=== PATIENT | female | born 1975 | race Caucasian/White ===

== ENCOUNTER → 2019-07-16 | Outpatient (CLI) | payer OTHER, SELFPAY | PROVIDERS: Family Provider Family Medicine; Visit Provider Radiology Radiation Oncology | DX: C50.412 Malignant neoplasm of upper-outer quadrant of left female breast (principal); Z17.0 Estrogen receptor positive status [ER+]; F41.8 Other specified anxiety disorders; J45.990 Exercise induced bronchospasm | CPT/HCPCS: 99205 ==

== ENCOUNTER → 2019-07-27 | Outpatient (CLI) | payer OTHER, SELFPAY | PROVIDERS: Family Provider Family Medicine; Visit Provider Specialist | DX: C50.412 Malignant neoplasm of upper-outer quadrant of left female breast (principal); Z17.0 Estrogen receptor positive status [ER+] | CPT/HCPCS: 99213 ==

== ENCOUNTER 2019-08-26 08:08 | Outpatient (RCR) | payer OTHER, SELFPAY | END 2019-08-28 23:59 | disposition home or self-care (01) | LOC: SPT 08:08 | PROVIDERS: Family Provider Family Medicine; PCP Family Medicine; Referring Provider Radiology Radiation Oncology; Visit Provider Radiology Radiation Oncology | DX: C50.412 Malignant neoplasm of upper-outer quadrant of left female breast (principal) | CPT/HCPCS: 97140; 97161 ==

== ENCOUNTER 2019-08-28 05:47 | Outpatient (RCR) | payer OTHER, SELFPAY ==
--- NOTE | 2019-08-04 | CT_ITS ---
Radation Therapy Planning CT images; total exam DLP: 705.70 mGy-cm MTDD
--- NOTE | 2019-08-14 13:03 | ONCRAD TMN_ITS ---
Radiation Oncology Weekly Treatment Management Patient: Gayatri Serna MR#: [id number] : 1975> Age: 44> Sex: Female Dictated by: Dr. Tyrone Tong Date of Service: 08/12/2019 Referring Physician(s) : Dr. Abhinav Waggoner Primary Diagnosis: Z17.0 - Estrogen receptor positive status [ER+], Diagnosed 07/15/2019 (Active) C50.412 - Malignant neoplasm of upper-outer quadrant of left female breast, Diagnosed 07/15/2019 (Active) Stage IA, T1b, pN0, M0, G1, HER2 Neg, ER Pos, [place] P Radiotherapy to date: Course: LT Breast Prone, Treatment Site: LT [id number], Ref. ID: LT [id number], Energy: 15X/6X, Dose/Fx (cGy): 266, #Fx: , Dose Correction (cGy): 0, Total Dose (cGy): 266, Start Date: 08/12/2019, Elapsed Days: 0 Current Complaints/Interval History: Constitutional Complains of mild fatigue. Denies lack of appetite, fever and night sweats. Integumentary No redness to left breast or axilla Breasts Denies pain. Respiratory Mild cough which is non-productive. Complains of dyspnea which is related to asthma. Denies wheezing. Current Medications: Adderall, augmentin, buPROPion HCl ER (SR), cetirizine HCl, flonase, hYDROcodone-Acetaminophen, lORazepam. Allergies: Adheasives. Vital Signs: Performed on 08/12/2019 9:32 AM BMI - 30.485 kg/m2 (high), Height - 64.00 in, Weight - 177.6 lbs, Temperature - 98.4 f, Pulse - 93, Respiration - 18, O2 Sat - 98 %, Pain - 0 and BP - 122/ 76 mm(hg). Physical Exam: Appears stable, no skin erythema or desquamation. Performance Status: 0 - Fully active, able to carry on all predisease activities without restrictions. (ECOG) Lab: None pending in Radiation Oncology. Imaging: No new diagnostic imaging was performed since the last weekly treatment visit. All radiation therapy related imaging (including but not limited to kV generated images) was reviewed. Appropriate changes, if any, were made to assure accurate target localization. Impression/Plan: Tolerating treatment well with expected side effects. Continue treatment as planned. Apply aquaphor to treatment area. CPT: 07872 Signed by: Dr. Tyrone Tong>08/14/2019 1:02:40 PM <<Signature on File>>
--- NOTE | 2019-08-19 16:40 | ONCRAD TMN_ITS ---
Radiation Oncology Weekly Treatment Management Patient: Gayatri Serna MR#: [id number] : 1975> Age: 44> Sex: Female Dictated by: Dr. Tyrone Tong Date of Service: 08/19/2019 Referring Physician(s) : Dr. Abhinav Waggoner Primary Diagnosis: Z17.0 - Estrogen receptor positive status [ER+], Diagnosed 07/15/2019 (Active) C50.412 - Malignant neoplasm of upper-outer quadrant of left female breast, Diagnosed 07/15/2019 (Active) Stage IA, T1b, pN0, M0, G1, HER2 Neg, ER Pos, [place] P Radiotherapy to date: Course: LT Breast Prone, Treatment Site: LT [id number], Ref. ID: LT [id number], Energy: 15X/6X, Dose/Fx (cGy): 266, #Fx: , Dose Correction (cGy): 0, Total Dose (cGy): 1,596, Start Date: 08/12/2019, Elapsed Days: 7 Current Complaints/Interval History: Constitutional Complains of mild fatigue. Denies lack of appetite, fever and night sweats. Integumentary Has slight redness to the left breast but no irritation Breasts Denies pain but has left axilla pain that radiates down to the wrist on the anterior side. Current Medications: Adderall, buPROPion HCl ER (SR), cetirizine HCl, flonase, hYDROcodone-Acetaminophen, lORazepam. Allergies: Adheasives. Vital Signs: Performed on 08/19/2019 9:31 AM BMI - 30.622 kg/m2 (high), Height - 64.00 in, Weight - 178.4 lbs, Temperature - 98.3 f, Pulse - 92, Respiration - 18, O2 Sat - 97 %, Pain - 6 and BP - 135/ 76 mm(hg). Physical Exam: Appears stable, mild skin erythema w/o desquamation. Performance Status: 0 - Fully active, able to carry on all predisease activities without restrictions. (ECOG) Lab: None pending in Radiation Oncology. Imaging: No new diagnostic imaging was performed since the last weekly treatment visit. All radiation therapy related imaging (including but not limited to MV generated images) was reviewed. Appropriate changes, if any, were made to assure accurate target localization. Impression/Plan: Tolerating treatment well with expected side effects. Continue treatment as planned. Continue aquaphor. Referral to physical therapy for her left axillar pain/symptoms from surgery. CPT: 66036 Signed by: Dr. Tyrone Tong>08/19/2019 4:40:07 PM <<Signature on File>>
--- NOTE | 2019-08-26 11:27 | ONCRAD TMN_ITS ---
Radiation Oncology Weekly Treatment Management Patient: Gayatri Serna MR#: [id number] : 1975 Age: 44 Sex: Female Dictated by: Dr. Tyrone Tong Date of Service: 08/26/2019 Referring Physician(s): Dr. Abhinav Waggoner Primary Diagnosis: Z17.0 - Estrogen receptor positive status [ER+], Diagnosed 07/15/2019 (Active) C50.412 - Malignant neoplasm of upper-outer quadrant of left female breast, Diagnosed 07/15/2019 (Active) Stage IA, T1b, pN0, M0, G1, HER2 Neg, ER Pos, [place] P Radiotherapy to date: Course: LT Breast Prone, Treatment Site: LT [id number], Ref. ID: LT [id number], Energy: 15X/6X, Dose/Fx (cGy): 266, #Fx: , Dose Correction (cGy): 0, Total Dose (cGy): 2,926, Start Date: 08/12/2019, Elapsed Days: 14 Current Complaints/Interval History: Constitutional Complains of fatigue on and off. Denies lack of appetite, fever, night sweats and change in weight. Integumentary Has redness to the left breast. Has pain/swelling of the nipple Breasts Denies pain. Respiratory Complains of dyspnea occasionally. Denies cough and wheezing. Current Medications: Adderall, advil, buPROPion HCl ER (SR), cetirizine HCl, flonase, hYDROcodone-Acetaminophen, lORazepam. Allergies: Adheasives. Vital Signs: Performed on 08/26/2019 9:24 AM BMI - 30.554 kg/m2 (high), Height - 64.00 in, Weight - 178.0 lbs, Temperature - 98.1 f, Pulse - 86, Respiration - 18, O2 Sat - 99 %, Pain - 0 and BP - 112/ 75 mm(hg). Physical Exam: Appears stable, no skin erythema or desquamation. Performance Status: 0 - Fully active, able to carry on all predisease activities without restrictions. (ECOG) Lab: None pending in Radiation Oncology. Imaging: No new diagnostic imaging was performed since the last weekly treatment visit. All radiation therapy related imaging (including but not limited to MV generated images) was reviewed. Appropriate changes, if any, were made to assure accurate target localization. Impression/Plan: Tolerating treatment well with expected side effects. Continue treatment as planned. Apply aquaphor and 1% hydrocortisone cream to affected skin CPT: 06387 Signed by: Dr. Tyrone Tong>08/26/2019 11:26:22 AM <<Signature on File>>
== END 2019-08-28 23:59 | disposition home or self-care (01) ==
LOC: ONCMED 05:47
PROVIDERS: Family Provider Family Medicine; Visit Provider Radiology Radiation Oncology
DX: Z51.0 Encounter for antineoplastic radiation therapy (principal); C50.412 Malignant neoplasm of upper-outer quadrant of left female breast; L58.0 Acute radiodermatitis; Y84.2 Radiological procedure and radiotherapy as the cause of abnormal reaction of the patient, or of later complication, without mention of misadventure at the time of the procedure; Z17.0 Estrogen receptor positive status [ER+]
CPT/HCPCS: 77263; 77280; 77290; 77295; 77300; 77334; 77336; 77412; 77417

== ENCOUNTER 2019-08-29 06:00 | Outpatient (RCR) | payer OTHER, SELFPAY | END 2019-09-26 23:59 | disposition home or self-care (01) | LOC: SPT 06:00 | PROVIDERS: Family Provider Family Medicine; PCP Family Medicine; Referring Provider Radiology Radiation Oncology; Visit Provider Radiology Radiation Oncology | DX: C50.412 Malignant neoplasm of upper-outer quadrant of left female breast (principal); Z17.0 Estrogen receptor positive status [ER+] | CPT/HCPCS: 97140 ==

== ENCOUNTER 2019-09-23 05:40 | Outpatient (RCR) | payer OTHER, SELFPAY ==
--- NOTE | 2019-09-02 13:11 | ONCRAD TMN_ITS ---
Radiation Oncology Weekly Treatment Management Patient: Gayatri Serna MR#: [id number] : 1975> Age: 44> Sex: Female Dictated by: Dr. Tyrone Tong Date of Service: 09/02/2019 Referring Physician(s) : Dr. Abhinav Waggoner Primary Diagnosis: Z17.0 - Estrogen receptor positive status [ER+], Diagnosed 07/15/2019 (Active) C50.412 - Malignant neoplasm of upper-outer quadrant of left female breast, Diagnosed 07/15/2019 (Active) Stage IA, T1b, pN0, M0, G1, HER2 Neg, ER Pos, [place] P Radiotherapy to date: Course: LT Breast Prone, Treatment Site: LT [id number], Ref. ID: LT [id number], Energy: 15X/6X, Dose/Fx (cGy): 266, #Fx: , Dose Correction (cGy): 0, Total Dose (cGy): 4,256, Start Date: 08/12/2019, Elapsed Days: 21 Current Complaints/Interval History: Integumentary Complains of pain and desquamation of skin around areola. Denies rash and urticaria. Breasts Complains of left breast soreness. Respiratory Denies cough, dyspnea and wheezing. Current Medications: Adderall, advil, buPROPion HCl ER (SR), cetirizine HCl, flonase, hYDROcodone-Acetaminophen, lORazepam. Allergies: Adheasives. Vital Signs: Performed on 09/02/2019 9:18 AM Weight - 178.2 lbs, Temperature - 97.7 f, Pulse - 26, Respiration - 16, O2 Sat - 99 %, Pain - 0 and BP - 112/ 66 mm(hg). Physical Exam: Appears stable, skin erythema and moisture desquamation in areola area. Performance Status: 0 - Fully active, able to carry on all predisease activities without restrictions. (ECOG) Lab: None pending in Radiation Oncology. Imaging: No new diagnostic imaging was performed since the last weekly treatment visit. All radiation therapy related imaging (including but not limited to MV generated images) was reviewed. Appropriate changes, if any, were made to assure accurate target localization. Impression/Plan: Tolerating treatment well with expected side effects. Continue treatment as planned. Rx: silvadene cream applied to moisture desquamation; Continue aquaphor for erythema. CPT: 62605 Signed by: Dr. Tyrone Tong>09/02/2019 1:09:30 PM <<Signature on File>>
--- NOTE | 2019-09-08 11:02 | ONCRAD TMN_ITS ---
Radiation Oncology Weekly Treatment Management Patient: Gayatri Serna MR#: [id number] : 1975> Age: 44> Sex: Female Dictated by: Dr. Tyrone Tong Date of Service: 09/08/2019 Referring Physician(s) : Dr. Abhinav Waggoner Primary Diagnosis: Z17.0 - Estrogen receptor positive status [ER+], Diagnosed 07/15/2019 (Active) C50.412 - Malignant neoplasm of upper-outer quadrant of left female breast, Diagnosed 07/15/2019 (Active) Stage IA, T1b, pN0, M0, G1, HER2 Neg, ER Pos, CT P Radiotherapy to date: Course: LT Breast Prone, Treatment Site: LT Breast 10Gy, Ref. ID: [id number], Energy: 15X/6X, Dose/Fx (cGy): 200, #Fx: 4 / 5, Dose Correction (cGy): 0, Total Dose (cGy): 800, Start Date: 09/03/2019, Elapsed Days: 5 Treatment Site: LT [id number], Ref. ID: LT [id number], Energy: 15X/6X, Dose/Fx (cGy): 266, #Fx: 16 / 16, Dose Correction (cGy): 0, Total Dose (cGy): 4,256, Start Date: 08/12/2019, End Date: 09/02/2019, Elapsed Days: 21 Current Complaints/Interval History: Constitutional Complains of moderate fatigue. Denies lack of appetite, fever and night sweats. Integumentary Has desquamation under the left breast Breasts Complains of pain in the left breast under the left breast. Respiratory Denies cough, dyspnea and wheezing. Current Medications: Adderall, advil, buPROPion HCl ER (SR), cetirizine HCl, flonase, hYDROcodone-Acetaminophen, lORazepam, silvadene. Allergies: Adheasives. Vital Signs: Performed on 09/08/2019 9:11 AM BMI - 30.622 kg/m2 (high), Height - 64.00 in, Weight - 178.4 lbs, Temperature - 97.3 f, Pulse - 96, Respiration - 20, O2 Sat - 100 %, Pain - 4 and BP - 123/ 81 mm(hg). Physical Exam: Appears stable, skin erythema and rash with a spot of moisture desquamation in inframammary fold Performance Status: 0 - Fully active, able to carry on all predisease activities without restrictions. (ECOG) Lab: None pending in Radiation Oncology. Imaging: No new diagnostic imaging was performed since the last weekly treatment visit. All radiation therapy related imaging (including but not limited to MV generated images) was reviewed. Appropriate changes, if any, were made to assure accurate target localization. Impression/Plan: Tolerating treatment well with expected side effects. Continue treatment as planned. Apply aquphor and hydrocortisone cream to the rash and erythema, silvadene to moisture desquamation CPT: 44826 Signed by: Dr. Tyrone Tong>09/08/2019 11:01:25 AM <<Signature on File>>
[2019-09-23 10:06] LABS: Basophils # 0.1 10^3/uL (0.0-0.1); Basophils % 1.4 %; Eosinophils # 0.2 10^3/uL (0.0-0.8); Eosinophils % 4.8 %; Hematocrit 42.6 % (37.0-47.0); Hemoglobin 14.2 g/dL (11.5-15.3); Lymphocytes # 1.6 10^3/uL (0.8-4.8); Lymphocytes % 38.6 %; Mean Corpuscular HGB Conc 33.3 g/dL (30.0-36.0); Mean Corpuscular Hemoglobin 30.8 pg (28.0-34.0); Mean Corpuscular Volume 92.4 fL (81-99); Mean Platelet Volume 10.3 fL (7.4-10.4); Monocytes # 0.6 10^3/uL (0.2-0.9); Monocytes % 13.8 %; Neutrophils # 1.7 10^3/uL (1.8-7.7); Neutrophils % 41.4 %; Nucleated Red Blood Cells % 0 %; Platelet Count 269 10^3/cmm (130-400); Red Blood Count 4.61 10^6/uL (4.1-5.3); Red Cell Distribution Width 11.4 % (12.1-15.1); White Blood Count 4.2 10^3/uL (4.0-10.0)
[2019-09-23 10:29] LABS: Alanine Aminotransferase 25 U/L (0-33); Albumin Level 4.3 g/dL (3.5-5.2); Alkaline Phosphatase 100 IU/L (35-105); Anion Gap 15.1 (5-19); Aspartate Amino Transferase 28 U/L (0-32); Blood Urea Nitrogen 18 mg/dL (6-20); Calcium 10.6 mg/dL (8.5-10.5); Carbon Dioxide 29 mmol/L (22-29); Chloride 99 mmol/L (98-107); Follicle Stimulating Hormone 91.9 mIU/mL; Globulin 3.6 g/dL (1.3-4.6); Glomerular Filtration Rate 67.4 mL/min (90-130); Glucose 95 mg/dL (65-115); Potassium 4.1 mmol/L (3.5-5.1); Sodium 139 mmol/L (136-145); Thyroid Stimulating Hormone 2.15 uIU/mL (0.27-4.20); Total Bilirubin 0.6 mg/dL (0.15-1.2); Total Protein 7.9 g/dL (6.6-8.7)
[2019-09-23 11:00] LABS: Free T4 Free Thyroxine 1.28 ng/dL (0.82-1.77)
--- NOTE | 2019-09-23 19:38 | ONC FU_ITS ---
Dr. Mayer Patient Follow-Up Note Patient: Gayatri Serna V Unit #: [id number]: 1975 Dicatated By: John Mayer M.D.Date of Visit:Sep 23, 2019 Onc Med Follow-up/Prog Note Chief Complaint: Breast cancer. History of Present Illness: This is a 44 year-old woman with grade 1 infiltrating ductal carcinoma of the left breast, stage IA (pT1b, pN0, M0), ER/AR positive and HER-2/alin negative. She has been in good general health. Her screening mammogram on 04/06/2019 was BI-RADS 0, incomplete. Findings included a spiculated soft tissue density or focus of architectural distortion measuring 10.8 mm in the posterior and lateral left breast, new from the prior exams in 2015 and 2013. Her additional mammogram views on 04/16/2019 showed persistent architectural distortion in the upper outer quadrant left breast measuring 8.9 mm. Left breast ultrasound showed a focus at the 2 o'clock position measuring 8.7 x 10.3 x 13.3 mm, but it did not appear masslike. The findings, though, were 4C, moderate suspicious. Ultrasound directed biopsy of the mass on 05/07/2019 showed nuclear grade 2 infiltrating ductal carcinoma. She underwent left breast lumpectomy on 06/18/2019. The initial pathology showed fibrocystic changes with a microscopic focus of atypical ductal epithelium. Additional excision at the lateral edge of the biopsy cavity showed grade 1 infiltrating ductal carcinoma measuring 1.0 x 0.4 cm. Fibrocystic changes were again noted. The new margins were noted to be free of tumor and atypia. The breast prognostic profile showed ER positive at 96% and AR positive at 71%. The tumor was negative for overexpression of HER-2/alin, 0+ by IHC and amplification ratio by FISH of 1.3 with 2.8 HER-2 copies/cell. The Ki-67 was favorable at 8%. She then underwent left axillary sentinel lymph node biopsy on 07/09/2019. The surgical specimen included 1 sentinel lymph node and one additional axillary lymph node, both of which showed benign pathology. I had seen her initially on 07/15/2019. In the setting of early stage, low risk disease she was recommended to undergo radiation followed by adjuvant hormonal therapy with tamoxifen. She began radiation to the left breast on 08/12/2019. She completed treatment on 07/09/2020, total dose 5256 cGy. Her other medical illnesses include allergic rhinitis and exercise-induced asthma. She also has a history of attention deficit disorder and anxiety/depression. She underwent hysterectomy without oophorectomy in 2017. She is a non-smoker. Her family history is significant for her father having had prostate cancer and for her maternal grandfather having had breast cancer. She is seen for a follow-up visit. She indicates that she developed significant problems during her radiation. In addition to having a fairly pronounced skin reaction in the breast, she also developed significant pain and swelling in her left arm. It included development of lymphatic cords in the arm, some of which popped. She says the swelling is beginning to go down now. She also complains that her face broke out during the treatment, but that has resolved. She is having some fatigue and she has gained weight. Her ECOG score is 1. She has not had fever. She has started having some hot flashes at night. She is sometimes short of breath. She does not complain of cough, and she has not been having chest pain. She has had some nausea and some acid reflux. Bowel and bladder function have been okay. She has no significant joint or bone pain. She occasionally has headache and she occasionally has dizziness. She has no numbness/paresthesia or other focal neurologic symptoms. Medications: Adderall 1 Tablet (of 30 mg) Tablet Oral daily, Advil 3 Tablet (of 200 mg) Oral t.i.d. PRN, buPROPion HCl ER (SR) 1 Tablet (of 150 mg) Tablet SR 12 HR Oral b.i.d., Cetirizine HCl 1 Tablet (of 10 mg) Oral daily, LORazepam 0.5 Tablet (of 0.5 mg) Tablet Oral daily PRN, Nasacort Allergy 24HR 1 Puff(s) Aerosol Nasal PRN Allergies: Adheasives Review of Systems: Constitutional - Her energy is pretty good generally. She has some limitation in activity. Her appetite is good and her weight is up close to 10 lbs. No fever or chills. She has had pretty severe hot flashes and sweating at night. ECOG score is 1, ENMT - No sinus congestion/drainage. No mouth sores. No sore throat or difficulty swallowing, Hematologic/Lymphatic - She has had some bruising, Respiratory - She sometimes gets a little winded. No cough. No pleuritic pain or hemoptysis, Cardiovascular - No angina pain. No palpitations, Gastrointestinal - She had some nausea during her radiation treatments. It has gotten better. No vomiting. She has some heartburn and acid reflux depending on what she eats. No diarrhea or constipation. No blood in the stool or black stools, Genitourinary (F) - No dysuria or hematuria. No urinary frequency. No urgency or incontinence, Musculoskeletal - She has been having pain and swelling in her left arm. She is going to physical therapy, Integumentary - She had a pretty severe skin reaction in the breast, but it is getting better. During radiation she also had an acne breakout on her face, Neurologic - She has occasional headaches. She had some dizziness yesterday after exercising. No numbness/paresthesias or other focal neurologic symptoms, Psychiatric - She has anxiety or depression, but it is managed adequately with medication. She does not sleep well at night, which is normal for her. Vital Signs: Performed on Sep 23, 2019 08:33 Height - 64.00 in Weight - 180.2 lbs (HIGH) BSA - 1.87 sq.m BMI - 30.93 (HIGH) Temperature - 97.5 F (LOW) Pulse - 91 /min Respiration - 18 /min BP - 140/78 mm(hg) O2 Sat - 99 % Pain - 0 Physical Examination: Constitutional - She looks good generally, Eyes - Sclerae nonicteric. Conjunctivae clear, ENMT - No lesions noted in the oral cavity, Hematologic/Lymphatic - No cervical or clavicular adenopathy, Respiratory - Lungs are clear with good air movement bilaterally, Cardiovascular - Heart rhythm is regular. There is no murmur, gallop, or rub noted, Breasts - There is residual erythema over the entire left breast and there is mild tenderness in the breast and in the left axilla. There is no palpable mass or adenopathy, Abdomen - Soft and non-tender. Liver and spleen are not enlarged. There is no abdominal mass or ascites noted and there is no inguinal adenopathy, Extremities - There is mild to moderately severe swelling of the left arm and there is some slight skin discoloration. There is no lower extremity edema, Neurologic - No focal neurologic deficits noted. Impression: 1. Patient with grade 1 infiltrating ductal carcinoma of the left breast, stage IA (pT1b, pN0, M0), ER/AR positive and HER-2/alin negative. Her Ki-67 index was favorable at 8%. 2. She underwent left breast lumpectomy on 06/18/2019 and she underwent left axillary sentinel lymph node biopsy on 07/09/2019. Her other medical illnesses include: 3. Allergic rhinitis. 4. Exercise induced asthma. 5. ADHD. 6. Anxiety/depression. I had seen her initially on 07/15/2019. In the setting of early stage, low risk disease she was recommended to undergo radiation followed by adjuvant hormonal therapy with tamoxifen. She began radiation to the left breast on 08/12/2019. She completed treatment on 07/09/2020, total dose 5256 cGy. She developed multiple problems during the radiation, the most significant being pain and swelling in the left arm. The appearance is consistent with lymphedema, and there have been associated lymphatic cords. She also has significant fatigue, and she has started having hot flashes. This is mostly unexpected with her surgery having been limited to lumpectomy and axillary sentinel node biopsy and with radiation limited to the breast. Plan: I had previously recommended adjuvant hormonal therapy with tamoxifen, but with the problems she has been experiencing I am going to delay starting her treatment. I will check baseline laboratory studies today to include CBC, comprehensive metabolic profile and TSH level, along with FSH, LH, and estradiol levels. I will see her again in 1 month. Signed By: John Mayer M.D. <<Signature on File>>
== END 2019-09-26 23:59 | disposition home or self-care (01) ==
LOC: ONCMED 05:40
PROVIDERS: Family Provider Family Medicine; PCP Family Medicine; Visit Provider Internal Medicine Medical Oncology
DX: Z51.0 Encounter for antineoplastic radiation therapy (principal); C50.412 Malignant neoplasm of upper-outer quadrant of left female breast; Z17.0 Estrogen receptor positive status [ER+]; L58.0 Acute radiodermatitis; Y84.2 Radiological procedure and radiotherapy as the cause of abnormal reaction of the patient, or of later complication, without mention of misadventure at the time of the procedure; R23.4 Changes in skin texture; N64.59 Other signs and symptoms in breast; J30.9 Allergic rhinitis, unspecified; J45.990 Exercise induced bronchospasm; F90.9 Attention-deficit hyperactivity disorder, unspecified type; F41.8 Other specified anxiety disorders
CPT/HCPCS: 36415; 77280; 77307; 77334; 77336; 77412; 77417; 80053; 82670; 83001; 83002; 84439; 84443; 85025; 99214

== ENCOUNTER 2019-09-27 06:00 | Outpatient (RCR) | payer OTHER, SELFPAY | END 2019-10-23 23:00 | disposition home or self-care (01) | LOC: SPT 06:00 | PROVIDERS: Family Provider Family Medicine; PCP Family Medicine; Referring Provider Radiology Radiation Oncology; Visit Provider Radiology Radiation Oncology | DX: C50.412 Malignant neoplasm of upper-outer quadrant of left female breast (principal) | CPT/HCPCS: 97140 ==

== ENCOUNTER 2019-10-26 06:30 | Outpatient (RCR) | payer OTHER, SELFPAY ==
--- NOTE | 2019-10-07 09:59 | ONCRAD EPV_ITS ---
Radiation Oncology Follow Up Note Patient: Gayatri MR#: [id number] : 1975> Age: 44> Sex: Female> Dictated by: Dr. Gorge Mcfarlane Date of Service: 10/07/2019 Referring Physician(s) : Dr. Abhinav Waggoner Diagnosis: Z17.0 - estrogen receptor positive status [er+], Diagnosed 07/15/2019 (active) and C50.412 - malignant neoplasm of upper-outer quadrant of left female breast, Diagnosed 07/15/2019 (active), stage ia, t1b, pn0, m0, g1, her2 neg, er pos, pr p. Current Complaints Patient seen 6 weeks after completing left breast RT. No complaints currently. Skin erythema has healed completely. Review of Systems: .Negative Vital Signs: Performed on 10/07/2019 9:52 AM Weight - 174.6 lbs, Temperature - 97.7 f, Pulse - 100, Respiration - 16, O2 Sat - 98 %, Pain - 0 and BP - 121/ 78 mm(hg). Physical Exam: Minimal hyperpigmentation in left breast, no desquamation. No residual palpable lesion or seroma in UOQ of left breast. Impression/Plan: Patient doing very well. To see Dr Mayer later this month to discuss any systemic therapy issues. Return in 6 months, at which time baseline mammogrsm will be obtained Signed by: 10/07/2019 9:57:39 AM <<Signature on File>> Time spent with patient: CPT Code:
--- NOTE | 2019-10-30 07:40 | ONC FU_ITS ---
Dr. Mayer Patient Follow-Up Note Patient: Gayatri Serna V Unit #: [id number]: 1975 Dicatated By: John Mayer M.D.Date of Visit:Oct 26, 2019 Onc Med Follow-up/Prog Note Chief Complaint: Breast cancer. History of Present Illness: This is a 44 year-old woman with grade 1 infiltrating ductal carcinoma of the left breast, stage IA (pT1b, pN0, M0), ER/IA positive and HER-2/alin negative. She has been in good general health. Her screening mammogram on 04/06/2019 was BI-RADS 0, incomplete. Findings included a spiculated soft tissue density or focus of architectural distortion measuring 10.8 mm in the posterior and lateral left breast, new from the prior exams in 2015 and 2013. Her additional mammogram views on 04/16/2019 showed persistent architectural distortion in the upper outer quadrant left breast measuring 8.9 mm. Left breast ultrasound showed a focus at the 2 o'clock position measuring 8.7 x 10.3 x 13.3 mm, but it did not appear masslike. The findings, though, were 4C, moderate suspicious. Ultrasound directed biopsy of the mass on 05/07/2019 showed nuclear grade 2 infiltrating ductal carcinoma. She underwent left breast lumpectomy on 06/18/2019. The initial pathology showed fibrocystic changes with a microscopic focus of atypical ductal epithelium. Additional excision at the lateral edge of the biopsy cavity showed grade 1 infiltrating ductal carcinoma measuring 1.0 x 0.4 cm. Fibrocystic changes were again noted. The new margins were noted to be free of tumor and atypia. The breast prognostic profile showed ER positive at 96% and IA positive at 71%. The tumor was negative for overexpression of HER-2/alin, 0+ by IHC and amplification ratio by FISH of 1.3 with 2.8 HER-2 copies/cell. The Ki-67 was favorable at 8%. She then underwent left axillary sentinel lymph node biopsy on 07/09/2019. The surgical specimen included 1 sentinel lymph node and one additional axillary lymph node, both of which showed benign pathology. I had seen her initially on 07/15/2019. In the setting of early stage, low risk disease she was recommended to undergo radiation followed by adjuvant hormonal therapy with tamoxifen. She began radiation to the left breast on 08/12/2019. She completed treatment on 07/09/2020, total dose 5256 cGy. Her other medical illnesses include allergic rhinitis and exercise-induced asthma. She also has a history of attention deficit disorder and anxiety/depression. She underwent hysterectomy without oophorectomy in 2017. She is a non-smoker. Her family history is significant for her father having had prostate cancer and for her maternal grandfather having had breast cancer. INTERIM HISTORY: I had seen her for a follow-up visit on 09/23/2019. At that point she was still having significant problems following her surgery and radiation, and I opted to defer starting her adjuvant hormonal therapy. She is today for a Telehealth visit. She is feeling much better now. She has improved energy, and she is pretty much back to normal activity now. ECOG score is 0. The left arm lymphedema has improved significantly. She still has a little swelling in her left hand, but she is managing that with a glove. She has some hot flashes, which come and go. They are not severe. Overall, she is doing much better. Medications: Adderall 1 Tablet (of 30 mg) Tablet Oral daily, Advil 3 Tablet (of 200 mg) Oral t.i.d. PRN, buPROPion HCl ER (SR) 1 Tablet (of 150 mg) Tablet SR 12 HR Oral b.i.d., Cetirizine HCl 1 Tablet (of 10 mg) Oral daily, LORazepam 0.5 Tablet (of 0.5 mg) Tablet Oral daily PRN, Nasacort Allergy 24HR 1 Puff(s) Aerosol Nasal PRN Allergies: Adheasives Review of Systems: Constitutional - Her energy level is much better. She is fully active. Her appetite is good. Her weight is down about 7 pounds. No fever or chills. Her hot flashes are still coming and going but they are overall better. She has occasional night sweats. ECOG score is 0, ENMT - She has seasonal allergies that are pretty well controlled with Zyrtec and Flonase. She has some sinus drainage. No mouth sores. No sore throat or difficulty swallowing, Hematologic/Lymphatic - No abnormal bruising or bleeding, Respiratory - No shortness of breath. No cough. No pleuritic pain or hemoptysis, Cardiovascular - No angina pain. No palpitations, Gastrointestinal - No nausea or vomiting. She has heartburn depending on what she eats. No diarrhea or constipation. No blood in the stool or black stools, Genitourinary (F) - No dysuria or hematuria. No urinary frequency. No urgency or incontinence, Musculoskeletal - No joint or bone pain, Integumentary - She has been having swelling in her left hand. The arm swelling has improved, Neurologic - She has had sinus headaches, improved with Flonase. She's had some lightheadedness when bending over. No numbness/paresthesias or other focal neurologic symptoms, Psychiatric - No anxiety or depression. She has occasional insomnia. Physical Examination: Constitutional - She looks good generally. She still has some mild swelling. Lab/Imaging: Test performed on Sep 23, 2019 09:50 Estradiol 5.0 pg/mL FSH 91.9 mIU/mL LH 50.80 mIU/mL Sodium 139 mmol/L T4, Free 1.28 ng/dL TSH 2.15 uIU/mL Potassium 4.1 mmol/L Chloride 99 mmol/L CO2 29 mmol/L Anion Gap 15.1 BUN 18 mg/dL Creatinine 0.9 mg/dL Cr Clearance (Est) 100.7900 mL/min eGFR 67.4 mL/min Glucose 95 mg/dL Calcium 10.6 mg/dL Protein, Total 7.9 g/dL Albumin 4.3 g/dL Globulin 3.6 g/dL Bilirubin, Total 0.6 mg/dL ALT (SGPT) 25 U/L AST (SGOT) 28 U/L Alkaline Phosphatase 100 IU/L WBC 4.2 10 3/uL RBC 4.61 10 6/uL HGB 14.2 g/dL HCT 42.6 % MCV 92.4 fL MCH 30.8 pg MCHC 33.3 g/dL RDW 11.4 % Platelet Count 269 10 3/cmm MPV 10.3 fL Neutrophils 1.7 10 3/uL Lymphocytes 1.6 10 3/uL Monocytes 0.6 10 3/uL Eosinophils 0.2 10 3/uL Basophils 0.1 10 3/uL Neutrophil % 41.4 % Lymphocyte % 38.6 % Monocyte % 13.8 % Eosinophil % 4.8 % Basophils % 1.4 % Impression: 1. Patient with grade 1 infiltrating ductal carcinoma of the left breast, stage IA (pT1b, pN0, M0), ER/IA positive and HER-2/alin negative. Her Ki-67 index was favorable at 8%. 2. She underwent left breast lumpectomy on 06/18/2019 and she underwent left axillary sentinel lymph node biopsy on 07/09/2019. Her other medical illnesses include: 3. Allergic rhinitis. 4. Exercise induced asthma. 5. ADHD. 6. Anxiety/depression. I had seen her initially on 07/15/2019. In the setting of early stage, low risk disease she was recommended to undergo radiation followed by adjuvant hormonal therapy with tamoxifen. She began radiation to the left breast on 08/12/2019. She completed treatment on 07/09/2020, total dose 5256 cGy. She developed multiple problems during the radiation, the most significant being pain and swelling in the left arm. The appearance was consistent with lymphedema, and it has now improved significantly with physical therapy. Overall, she appears now to be doing very well clinically. Plan: She will now begin adjuvant hormonal therapy with tamoxifen 20 mg daily. The recommended duration of treatment is 5 years. She is aware that it will likely increase her hot flashes and that it may cause other anti-estrogen effects, including vaginal dryness. She is also aware that it has a risk of thromboembolism. As she previously had a hysterectomy, she is not at risk of endometrial cancer. She will be scheduled for a followup visit in 3 months. Signed By: John Mayer M.D. <<Signature on File>>
== END 2019-10-27 23:59 | disposition home or self-care (01) ==
LOC: ONCMED 06:30
PROVIDERS: Family Provider Family Medicine; PCP Family Medicine; Visit Provider Internal Medicine Medical Oncology
DX: C50.412 Malignant neoplasm of upper-outer quadrant of left female breast (principal); Z17.0 Estrogen receptor positive status [ER+]; J45.990 Exercise induced bronchospasm; F98.8 Other specified behavioral and emotional disorders with onset usually occurring in childhood and adolescence; F41.8 Other specified anxiety disorders; Z79.899 Other long term (current) drug therapy; Z79.810 Long term (current) use of selective estrogen receptor modulators (SERMs); Z92.3 Personal history of irradiation; Z80.3 Family history of malignant neoplasm of breast; Z80.42 Family history of malignant neoplasm of prostate
CPT/HCPCS: 99214

== ENCOUNTER 2020-05-03 10:05 | Outpatient (CLI) | payer OTHER, SELFPAY ==
--- NOTE | 2020-05-03 10:09 | MM_ITS ---
WS: [id number] DIAGNOSTIC BILATERAL DIGITAL MAMMOGRAM WITH CAD HISTORY: POST RADIATION TX;HX OF BREAST CA COMPARISON: 06/18/2019, 04/16/2019, 04/06/2019 and 03/30/2016 TECHNIQUE: Bilateral craniocaudad, mediolateral oblique, and mediolateral views are submitted. Comput er aided detection utilized. Breast composition: The breasts are heterogeneously dense, which may obscure small masses. Postsurgic al lumpectomy site upper outer quadrant of the LEFT breast. There is overlying soft tissue thickening and distortion which is appropriate for the recent surgery and radiation treatment. Overall trabecul ar pattern is slightly increased within the breast with skin thickening which is also consistent with radiation treatment. MM/[id number] IMPRESSION: BI-RADS: 2-Benign FOLLOW UP: 1 Year Follow-up
== END 2020-05-03 10:06 | disposition home or self-care (01) ==
PROVIDERS: PCP Family Medicine
DX: Z85.3 Personal history of malignant neoplasm of breast (principal)
CPT/HCPCS: 77066

== ENCOUNTER 2020-06-21 10:10 | Outpatient (CLI) | payer OTHER, SELFPAY ==
--- NOTE | 2020-06-24 15:43 | ONC FU_ITS ---
Dr. Mayer Patient Follow-Up Note Patient: Gayatri Serna V Unit #: [id number]: 1975 Dicatated By: John Mayer M.D.Date of Visit:Jun 21, 2020 Onc Med Follow-up/Prog Note Chief Complaint: Breast cancer. History of Present Illness: This is a 45 year-old woman with grade 1 infiltrating ductal carcinoma of the left breast, stage IA (pT1b, pN0, M0), ER/NM positive and HER-2/alin negative. She had presented with an abnormal screening mammogram in 2018. Findings included a spiculated soft tissue density or focus of architectural distortion measuring 10.8 mm in the posterior and lateral left breast, new from the prior exams in 2015 and 2013. Her additional mammogram views on 04/16/2019 showed persistent architectural distortion in the upper outer quadrant left breast measuring 8.9 mm. Left breast ultrasound showed a focus at the 2 o'clock position measuring 8.7 x 10.3 x 13.3 mm, but it did not appear masslike. The findings, though, were 4C, moderate suspicious. Ultrasound directed biopsy of the mass on 05/07/2019 showed nuclear grade 2 infiltrating ductal carcinoma. She underwent left breast lumpectomy on 06/18/2019. The initial pathology showed fibrocystic changes with a microscopic focus of atypical ductal epithelium. Additional excision at the lateral edge of the biopsy cavity showed grade 1 infiltrating ductal carcinoma measuring 1.0 x 0.4 cm. Fibrocystic changes were again noted. The new margins were noted to be free of tumor and atypia. The breast prognostic profile showed ER positive at 96% and NM positive at 71%. The tumor was negative for overexpression of HER-2/alin, 0+ by IHC and amplification ratio by FISH of 1.3 with 2.8 HER-2 copies/cell. The Ki-67 was favorable at 8%. She then underwent left axillary sentinel lymph node biopsy on 07/09/2019. The surgical specimen included 1 sentinel lymph node and 1 additional axillary lymph node, both of which showed benign pathology. I had seen her initially on 07/15/2019. In the setting of early stage, low risk disease she was recommended to undergo radiation followed by adjuvant hormonal therapy. She began radiation to the left breast on 08/12/2019. She completed treatment on 09/09/2019, total dose 5256 cGy. At her follow-up visit on 09/23/2019 she was still having significant problems following her surgery and radiation, and I opted to defer starting her adjuvant hormonal therapy. At that time I had uncertainty about her menopausal status, as her history included a previous hysterectomy without oophorectomy. She had not been having any obvious menopausal symptoms, but her FSH, LH, and estradiol levels did appear to be postmenopausal. Ultimately she begin treatment on 10/26/2019, and I opted to use tamoxifen, as the duration of her menopause was unknown. Her other medical illnesses include allergic rhinitis and exercise-induced asthma. She also has a history of attention deficit disorder and anxiety/depression. She underwent hysterectomy without oophorectomy in 2017. She is a non-smoker. Her family history is significant for her father having had prostate cancer and for her maternal grandfather having had breast cancer. INTERIM HISTORY: At her follow-up visit on 10/26/2019 she began adjuvant hormonal therapy with tamoxifen 20 mg daily. She had stopped it within 3 weeks due to multiple side effects, the most significant being generalized swelling. She also had hot flashes, fatigue, and mood swings. She is seen now for a scheduled follow-up. She has generally felt better since stopping the tamoxifen. However, she has had some ongoing problems with lymphatic cording in her left breast/chest wall and in the left arm. She was having some swelling, that has improved. She has good energy now and she has normal activity. Her appetite is good. She has gained weight. She has not had fever. She does report having hot flashes all the time. She has some cough associated with sinus drainage. She does not complain of shortness of breath. She has some tightness in her chest associated with the cording. She has had mild nausea since she started taking Accutane. She has no other GI or complaints. She has felt a little achy at times, but she has no significant joint or bone pain. She has no focal neurologic symptoms. Medications: accutane 1 Tablet Oral daily, Acetaminophen (650 mg) Tablet Oral Take as Directed, Adderall 1 Tablet (of 30 mg) Tablet Oral daily, Advil 3 Tablet (of 200 mg) Oral t.i.d. PRN, Aspirin Adult (325 mg) Tablet Oral Take as Directed, buPROPion HCl ER (SR) 1 Tablet (of 150 mg) Tablet SR 12 HR Oral b.i.d., Cetirizine HCl 1 Tablet (of 10 mg) Oral daily, LORazepam 0.5 Tablet (of 0.5 mg) Tablet Oral daily PRN, Nasacort Allergy 24HR 1 Puff(s) Aerosol Nasal PRN Allergies: Adheasives Review of Systems: Constitutional - She has good energy and she has normal activity. Her appetite is good. She has gained weight. She has not had fever. She does have hot flashes all the time. ECOG score is 0, ENMT - She has sinus drainage. No mouth sores, but she says she is getting a fever blister. No sore throat or difficulty swallowing, Hematologic/Lymphatic - She has some bruising, Respiratory - No shortness of breath. She has cough with the sinus drainage. No pleuritic pain or hemoptysis, Cardiovascular - She has some tightness in the left lateral chest area associated with lymphatic cording. She has no angina pain. No palpitations, Gastrointestinal - No nausea or vomiting. No heartburn or acid reflux. No diarrhea or constipation. No blood in the stool or black stools, Genitourinary (F) - No dysuria or hematuria. No urinary frequency. No urgency or incontinence, Musculoskeletal - She has felt a little achy at times, Integumentary - No skin rash, Neurologic - No headache. She sometimes has dizziness. No numbness or tingling. No other focal neurologic symptoms, Psychiatric - She has some anxiety, but no depression. She has always had problems with insomnia. Vital Signs: Performed on Jun 21, 2020 12:35 Height - 64.00 in Weight - 183.0 lbs (HIGH) BSA - 1.88 sq.m BMI - 31.41 (HIGH) Temperature - 98.2 F (LOW) Pulse - 103 /min (HIGH) Respiration - 18 /min BP - 124/74 mm(hg) O2 Sat - 98 % Pain - 0 Physical Examination: Constitutional - She looks good generally, Eyes - Sclerae nonicteric. Conjunctivae clear, ENMT - No lesions noted in the oral cavity, Hematologic/Lymphatic - No cervical, clavicular, or axillary adenopathy, Respiratory - Lungs are clear with good air movement bilaterally, Cardiovascular - Heart rhythm is regular. There is no murmur, gallop, or rub noted, Breasts - There is mild induration in the left breast. There are no breast masses noted. There is no definite linear cord palpable in the subcutaneous tissue in the lateral left chest, just adjacent to the lower inferior breast margin. It is slightly tender. There is no axillary adenopathy noted. She currently does not show evidence of lymphedema, Abdomen - Soft. Liver and spleen are not enlarged. There is no abdominal mass or ascites noted and there is no inguinal adenopathy, Extremities - No lower extremity edema, Neurologic - No focal neurologic deficits noted. Impression: 1. Patient with grade 1 infiltrating ductal carcinoma of the left breast, stage IA (pT1b, pN0, M0), ER/NM positive and HER-2/alin negative. Her Ki-67 index was favorable at 8%. 2. She underwent left breast lumpectomy on 06/18/2019 and she underwent left axillary sentinel lymph node biopsy on 07/09/2019. In the setting of early stage, low risk disease she was recommended to undergo radiation followed by adjuvant hormonal therapy. 3. She completed radiation to the left breast on 09/09/2019, total dose 5256 cGy. 4. Her FSH, LH, and estradiol levels from August 2019 were in postmenopausal range. However, as the duration of her menopausal status was unknown, she was recommended to undergo adjuvant hormonal therapy with tamoxifen 20 mg daily, which she started on 10/26/2019. It was stopped after 3 weeks due to multiple side effects. 5. Her family history is positive for breast cancer and prostate cancer, which does put her at some risk for hereditary breast cancer. Her genetic screening apparently is in process. Her other medical illnesses include: 6. Allergic rhinitis. 7. Exercise induced asthma. 8. ADHD. 9. Anxiety/depression. Following her office visit in September 2019 she began adjuvant hormonal therapy with tamoxifen 20 mg daily. She had multiple side effects, and she stopped taking it within 3 weeks. She has since then been feeling better generally, though she still has hot flashes. She has had some ongoing problems with lymphatic cording in her left breast/chest wall and in her left arm. She also has had some lymphedema, but that now appears to be controlled. Plan: In the setting of very low risk disease and with significant side effects associated with adjuvant hormonal therapy, she will be followed on observation/expectant management for the breast cancer. I will see her again in 6 months. Signed By: John Mayer M.D. <<Signature on File>>
== END 2020-06-21 10:11 | disposition home or self-care (01) ==
LOC: ONCMED 10:12
PROVIDERS: PCP Family Medicine; Visit Provider Internal Medicine Medical Oncology
DX: C50.412 Malignant neoplasm of upper-outer quadrant of left female breast (principal); Z17.0 Estrogen receptor positive status [ER+]; J30.9 Allergic rhinitis, unspecified; J45.990 Exercise induced bronchospasm; F98.8 Other specified behavioral and emotional disorders with onset usually occurring in childhood and adolescence; F41.8 Other specified anxiety disorders; Z79.810 Long term (current) use of selective estrogen receptor modulators (SERMs); Z92.3 Personal history of irradiation; Z80.3 Family history of malignant neoplasm of breast
CPT/HCPCS: 99214

== ENCOUNTER 2021-05-11 14:03 | Outpatient (CLI) | payer OTHER, SELFPAY ==
--- NOTE | 2021-05-11 14:10 | MM_ITS ---
WS: [id number] DIAGNOSTIC BILATERAL DIGITAL MAMMOGRAM WITH CAD HISTORY: HX OF BREAST CA COMPARISON: 05/03/2020 and 04/06/2019 TECHNIQUE: Bilateral craniocaudad, mediolateral oblique, and mediolateral views are submitted. Comput er aided detection utilized. Breast composition: There are scattered areas of fibroglandular density. Focal area of architectural distortion from the prior lumpectomy in the upper outer quadrant of the LEFT breast. No suspicious mass or calcifications in the RIGHT breast. MM/[id number] IMPRESSION: BI-RADS: 2-Benign FOLLOW UP: 1 Year Follow-up
== END 2021-05-11 14:04 | disposition home or self-care (01) ==
LOC: RADSHAW 14:07
PROVIDERS: PCP Family Medicine; Visit Provider Internal Medicine Medical Oncology
DX: Z85.3 Personal history of malignant neoplasm of breast (principal)
CPT/HCPCS: 77066

== ENCOUNTER 2021-09-27 13:39 | Outpatient (CLI) | payer OTHER, SELFPAY ==
[2021-09-27 15:47] LABS: Basophils # 0.1 10^3/uL (0.0-0.1); Basophils % 1.1 %; Eosinophils # 0.2 10^3/uL (0.0-0.8); Eosinophils % 3.2 %; Hematocrit 44.8 % (37.0-47.0); Hemoglobin 15.1 g/dL (11.5-15.3); Lymphocytes # 2.6 10^3/uL (0.8-4.8); Lymphocytes % 35.9 %; Mean Corpuscular HGB Conc 33.7 g/dL (30.0-36.0); Mean Corpuscular Hemoglobin 32.2 pg (28.0-34.0); Mean Corpuscular Volume 95.5 fl (81-99); Mean Platelet Volume 10.3 fL (7.4-10.4); Monocytes # 0.7 10^3/uL (0.2-0.9); Monocytes % 9.9 %; Neutrophils # 3.53 10^3/uL (1.8-7.7); Neutrophils % 49.8 %; Nucleated Red Blood Cells % 0 %; Platelet Count 294 10^3/cmm (130-400); Red Blood Count 4.69 10^6/uL (4.1-5.3); Red Cell Distribution Width 11.6 % (12.1-15.1); White Blood Count 7.1 10^3/uL (4.0-10.0)
[2021-09-27 16:46] LABS: Alanine Aminotransferase 23 U/L (0-33); Albumin Level 4.8 g/dL (3.5-5.2); Alkaline Phosphatase 112 IU/L (35-105); Blood Urea Nitrogen 14 mg/dL (6-20); Calcium 9.5 mg/dL (8.5-10.5); Carbon Dioxide 25 mmol/L (22-29); Chloride 102 mmol/L (98-107); Globulin 2.7 g/dL (1.3-4.6); Glomerular Filtration Rate 89.3 mL/min (90-130); Glucose 84 mg/dL (65-115); Osmolality Calculated 288 mOsm/kg (285-295); Sodium 139 mmol/L (136-145); Total Bilirubin 0.3 mg/dL (0.15-1.2); Total Protein 7.5 g/dL (6.6-8.7)
[2021-09-27 16:53] LABS: Anion Gap 16.1 (5-19); Aspartate Amino Transferase 25 U/L (0-32); Potassium 4.1 mmol/L (3.5-5.1)
--- NOTE | 2021-09-28 20:57 | ONC FU_ITS ---
Amparo Chapin Progress Note Patient: Gayatri Serna V Unit #: [id number]: 1975 Dicatated By: Amparo Chapin N.P.Date of Visit:Sep 27, 2021 Onc MED Follow-up/Prog Note Chief Complaint: Breast cancer. History of Present Illness: This is a 45 year-old woman with grade 1 infiltrating ductal carcinoma of the left breast, stage IA (pT1b, pN0, M0), ER/WI positive and HER-2/alin negative. She had presented with an abnormal screening mammogram in 2018. Findings included a spiculated soft tissue density or focus of architectural distortion measuring 10.8 mm in the posterior and lateral left breast, new from the prior exams in 2015 and 2013. Her additional mammogram views on 04/16/2019 showed persistent architectural distortion in the upper outer quadrant left breast measuring 8.9 mm. Left breast ultrasound showed a focus at the 2 o'clock position measuring 8.7 x 10.3 x 13.3 mm, but it did not appear masslike. The findings, though, were 4C, moderate suspicious. Ultrasound directed biopsy of the mass on 05/07/2019 showed nuclear grade 2 infiltrating ductal carcinoma. She underwent left breast lumpectomy on 06/18/2019. The initial pathology showed fibrocystic changes with a microscopic focus of atypical ductal epithelium. Additional excision at the lateral edge of the biopsy cavity showed grade 1 infiltrating ductal carcinoma measuring 1.0 x 0.4 cm. Fibrocystic changes were again noted. The new margins were noted to be free of tumor and atypia. The breast prognostic profile showed ER positive at 96% and WI positive at 71%. The tumor was negative for overexpression of HER-2/alin, 0+ by IHC and amplification ratio by FISH of 1.3 with 2.8 HER-2 copies/cell. The Ki-67 was favorable at 8%. She then underwent left axillary sentinel lymph node biopsy on 07/09/2019. The surgical specimen included 1 sentinel lymph node and 1 additional axillary lymph node, both of which showed benign pathology. Dr. Mayer had seen her initially on 07/15/2019. In the setting of early stage, low risk disease she was recommended to undergo radiation followed by adjuvant hormonal therapy. She began radiation to the left breast on 08/12/2019. She completed treatment on 09/09/2019, total dose 5256 cGy. At her follow-up visit on 09/23/2019 she was still having significant problems following her surgery and radiation, and Dr. Mayer opted to defer starting her adjuvant hormonal therapy. At that time he had uncertainty about her menopausal status, as her history included a previous hysterectomy without oophorectomy. She had not been having any obvious menopausal symptoms, but her FSH, LH, and estradiol levels did appear to be postmenopausal. Ultimately she begin treatment on 10/26/2019, and we opted to use tamoxifen, as the duration of her menopause was unknown. Her other medical illnesses include allergic rhinitis and exercise-induced asthma. She also has a history of attention deficit disorder and anxiety/depression. She underwent hysterectomy without oophorectomy in 2016. She is a non-smoker. Her family history is significant for her father having had prostate cancer and for her maternal grandfather having had breast cancer. INTERIM HISTORY: At her follow-up visit on 10/26/2019 she began adjuvant hormonal therapy with tamoxifen 20 mg daily. She had stopped it within 3 weeks due to multiple side effects, the most significant being generalized swelling. She also had hot flashes, fatigue, and mood swings. She is seen today for scheduled follow-up visit. She has some mild fatigue but that is improving. Her appetite is good. She denies fever or chills. She does have occasional hot flashes. She denies shortness of breath, cough, chest pain. No nausea or vomiting, diarrhea or constipation. No urinary symptoms. No joint or muscle pain. No headaches or dizziness. Her city treasurer is recommending that she have a bilateral oophorectomy which may be a good idea considering she is HR WI positive and unable to tolerate tamoxifen. Review Of Symptoms:See above. Past Medical History: Allergic rhinitis Anxiety Attention deficit disorder Depression Exercise induced asthma Past Surgical History: Carpal tunnel release right wrist section x 3 Tympanoplasty Left axillary sentinel lymph node biopsy in 2019 Left breast lumpectomy in 2019 Ultrasound directed needle biopsy of the left breast in 2019 Hysterectomy without oophorectomy in 2017 Tubal ligation in 2008 Allergies: Adheasives Medications: accutane 1 Tablet Oral daily Acetaminophen (650 mg) Tablet Oral Take as Directed Adderall 1 Tablet (of 30 mg) Tablet Oral daily Advil 3 Tablet (of 200 mg) Oral t.i.d. PRN Aspirin Adult (325 mg) Tablet Oral Take as Directed buPROPion HCl ER (SR) 1 Tablet (of 150 mg) Tablet SR 12 HR Oral b.i.d. Cetirizine HCl 1 Tablet (of 10 mg) Oral daily LORazepam 0.5 Tablet (of 0.5 mg) Tablet Oral daily PRN Nasacort Allergy 24HR 1 Puff(s) Aerosol Nasal PRN Family History: Ms. Willoughbys mother is alive. Ms. Willoughbys father at age 78: prostate cancer, and renal failure. Her maternal grandfather is : breast cancer. Her paternal grandmother is : colon cancer. Her father had prostate cancer. He of renal failure at age 78. Mother is living and in good health. A younger sister of SIDS at 3 months of age. Her maternal grandfather had breast cancer. Her paternal grandmother had colon cancer. 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 Ms. Serna has never smoked. She drinks occasionally. She consumes 1 day/week. Ms. Serna reports the following support systems: lives with spouse, significant other, family, or friends, lives in own house, supportive family/friends willing to assist with needs, and adequate transportation available for expected visits. Her diet consists of regular meals. She indicates her activity level as: regular exercise. She is a non-smoker, but she does describe having had significant secondhand smoke exposure during childhood. She has had social alcohol use in the past. She now has just very occasional alcohol use. Physical Examination: Performed on Sep 27, 2021 14:00: Height - 64.00 in, Weight - 184.4 lbs (HIGH), BSA - 1.89 sq.m, BMI - 31.65 (HIGH), Temperature - 97.6 F (LOW), Pulse - 102 /min (HIGH), Respiration - 16 /min, BP - 131/80 mm(hg), O2 Sat - 99 %, Pain - 0, and Fatigue - 4. Performance Status: 0 - Fully active, able to carry on all predisease activities without restrictions. (ECOG) Constitutional Alert, cooperative, oriented. Mood and affect appropriate. Appears close to chronological age. Well nourished. Well developed. Head Normocephalic; no scars. Respiratory Lungs are clear to auscultation without rhonchi or wheezing. Cardiovascular Regular rate and rhythm of heart without murmurs, gallops or rubs. Abdomen Non-tender, non-distended, no masses, ascites or hepatosplenomegaly. Good bowel sounds. No guarding or rebound tenderness. Extremities No visible deformities, no cyanosis, clubbing or edema. Pulses 3+ and equal bilaterally. Musculoskeletal No tenderness or swelling, normal range of motion without obvious weakness. Psychiatric Alert and oriented times three. Coherent speech. Verbalizes understanding of our discussions today. Laboratory: Test performed on Sep 27, 2021 15:16 Sodium 139 mmol/L Potassium 4.1 mmol/L Chloride 102 mmol/L CO2 25 mmol/L Anion Gap 16.1 BUN 14 mg/dL Creatinine 0.7 mg/dL Cr Clearance (Est) 129.7800 mL/min eGFR 89.3 mL/min Glucose 84 mg/dL Osmolality - Calculated 288 mOsm/kg Calcium 9.5 mg/dL Protein, Total 7.5 g/dL Albumin 4.8 g/dL Globulin 2.7 g/dL Bilirubin, Total 0.3 mg/dL ALT (SGPT) 23 U/L AST (SGOT) 25 U/L Alkaline Phosphatase 112 IU/L WBC 7.1 10 3/uL RBC 4.69 10 6/uL HGB 15.1 g/dL HCT 44.8 % MCV 95.5 fl MCH 32.2 pg MCHC 33.7 g/dL RDW 11.6 % Platelet Count 294 10 3/cmm MPV 10.3 fL Neutrophils 3.53 10 3/uL Lymphocytes 2.6 10 3/uL Monocytes 0.7 10 3/uL Eosinophils 0.2 10 3/uL Basophils 0.1 10 3/uL Neutrophil % 49.8 % Lymphocyte % 35.9 % Monocyte % 9.9 % Eosinophil % 3.2 % Basophils % 1.1 % NRBC % 0 % Impression: 1. Patient with grade 1 infiltrating ductal carcinoma of the left breast, stage IA (pT1b, pN0, M0), ER/WI positive and HER-2/alin negative. Her Ki-67 index was favorable at 8%. 2. She underwent left breast lumpectomy on 06/18/2019 and she underwent left axillary sentinel lymph node biopsy on 07/09/2019. In the setting of early stage, low risk disease she was recommended to undergo radiation followed by adjuvant hormonal therapy. 3. She completed radiation to the left breast on 09/09/2019, total dose 5256 cGy. 4. Her FSH, LH, and estradiol levels from August 2019 were in postmenopausal range. However, as the duration of her menopausal status was unknown, she was recommended to undergo adjuvant hormonal therapy with tamoxifen 20 mg daily, which she started on 10/26/2019. It was stopped after 3 weeks due to multiple side effects. 5. Her family history is positive for breast cancer and prostate cancer, which does put her at some risk for hereditary breast cancer. Her genetic screening apparently is in process. Her other medical illnesses include: 6. Allergic rhinitis. 7. Exercise induced asthma. 8. ADHD. 9. Anxiety/depression. Following her office visit in September 2019 she began adjuvant hormonal therapy with tamoxifen 20 mg daily. She had multiple side effects, and she stopped taking it within 3 weeks. She has since then been feeling better generally, though she still has hot flashes. She had had some problems with lymphatic cording in her left breast, left chest wall and left arm but that has pretty much resolved now. Plan: She has a scheduled appointment with her city treasurer to discuss bilateral oophorectomy. In the setting of very low risk disease and with significant side effects associated with adjuvant hormonal therapy, she will be followed on observation/expectant management for the breast cancer. She did not have her labs done prior to this appointment but she states she will get them done and have them sent to our office. She will follow-up in 6 months with a CBC CMP and a follow-up mammogram. Signed By: Amparo Chapin N.P. <<Signature on File>>
== END 2021-09-27 13:40 | disposition home or self-care (01) ==
PROVIDERS: PCP Family Medicine; Visit Provider Internal Medicine Medical Oncology
DX: Z85.3 Personal history of malignant neoplasm of breast (principal); F41.9 Anxiety disorder, unspecified; F98.8 Other specified behavioral and emotional disorders with onset usually occurring in childhood and adolescence; F32.A Depression, unspecified; J45.990 Exercise induced bronchospasm; Z79.899 Other long term (current) drug therapy; Z90.710 Acquired absence of both cervix and uterus; Z92.3 Personal history of irradiation
CPT/HCPCS: 80053; 85025; 99214

== ENCOUNTER 2022-05-23 15:03 | Oncology outpatient (recurring) (ONCR) | payer OTHER, SELFPAY ==
[2022-05-23 15:31] LABS: Basophils # 0.1 10^3/uL (0.0-0.1); Basophils % 0.7 %; Eosinophils # 0.2 10^3/uL (0.0-0.8); Eosinophils % 1.7 %; Hematocrit 41.6 % (37.0-47.0); Lymphocytes # 2.5 10^3/uL (0.8-4.8); Lymphocytes % 25.5 %; Mean Corpuscular HGB Conc 33.7 g/dL (30.0-36.0); Mean Platelet Volume 10.3 fL (7.4-10.4); Monocytes % 9.6 %; Neutrophils # 6.19 10^3/uL (1.8-7.7); Neutrophils % 62.3 %; Nucleated Red Blood Cells % 0 %; Platelet Count 267 10^3/cmm (130-400); Red Blood Count 4.38 10^6/uL (4.1-5.3); Red Cell Distribution Width 11.4 % (12.1-15.1)
[2022-05-23 15:51] LABS: Alanine Aminotransferase 27 U/L (0-33); Albumin Level 4.2 g/dL (3.5-5.2); Alkaline Phosphatase 110 U/L (35-105); Anion Gap 13.7 (5-19); Aspartate Amino Transferase 33 U/L (0-32); Blood Urea Nitrogen 20 mg/dL (6-20); Calcium 9.8 mg/dL (8.5-10.5); Carbon Dioxide 27 mmol/L (22-29); Chloride 102 mmol/L (98-107); Globulin 3.2 g/dL (1.3-4.6); Glomerular Filtration Rate 76.2 mL/min (90-130); Glucose 96 mg/dL (65-115); Osmolality Calculated 290 mOsm/kg (285-295); Potassium 3.7 mmol/L (3.5-5.1); Sodium 139 mmol/L (136-145); Total Bilirubin 0.4 mg/dL (0.15-1.2); Total Protein 7.4 g/dL (6.6-8.7)
== END 2022-05-28 23:59 | disposition home or self-care (01) ==
PROVIDERS: PCP Family Medicine; Visit Provider Internal Medicine Medical Oncology
DX: C50.412 Malignant neoplasm of upper-outer quadrant of left female breast (principal)
CPT/HCPCS: 36415; 80053; 85025

== ENCOUNTER 2022-06-14 13:14 | Outpatient (CLI) | payer OTHER, SELFPAY ==
--- NOTE | 2022-06-14 13:22 | MM_ITS ---
WS: [id number] BILATERAL 3D TOMOSYNTHESIS DIGITAL DIAGNOSTIC MAMMOGRAPHY WITH CAD CLINICAL INFORMATION: Yearly surveillance, due now COMPARISON: May 11, 2021, 2015 TECHNIQUE: Bilateral CC, MLO, and ML views. FINDINGS: Scattered fibroglandular densities bilaterally. Prior postoperative changes lumpectomy upper outer LE FT breast. Associated parenchymal scarring in this area with treatment-related changes. Mild skin thi ckening LEFT breast has improved compared to previous. LEFT breast is otherwise unchanged from previo us Subtle increasing 10 mm area of architectural distortion superior quadrant RIGHT breast best seen on the MLO view. This is not well seen on the cc view but appears upper outer RIGHT breast on the tomogr am views. Recommend RIGHT breast diagnostic mammography spot compression views and ultrasound in furt her evaluation. MM/[place] [id number] IMPRESSION: BI-RADS: 0-Incomplete: Need additional imaging evaluation FOLLOW UP: Need Additional Imaging Recommend RIGHT breast diagnostic mammography spot compression views and ultras ound.
== END 2022-06-14 13:15 | disposition home or self-care (01) ==
LOC: RAD 13:15
PROVIDERS: PCP Family Medicine; Visit Provider Internal Medicine Medical Oncology
DX: C50.412 Malignant neoplasm of upper-outer quadrant of left female breast (principal)
CPT/HCPCS: 77062; G0279

== ENCOUNTER 2022-07-06 09:30 | Outpatient (CLI) | payer OTHER, SELFPAY ==
--- NOTE | 2022-07-06 09:42 | MM_ITS ---
WS: [id number] ADDITIONAL VIEWS RIGHT MAMMOGRAM with tomosynthesis. RIGHT BREAST ULTRASOUND HISTORY: abnormal mammogram COMPARISON: 06/14/2022, 05/11/2021, 05/03/2020 RIGHT MAMMOGRAM: Spot compression views and true ML with tomosynthesis and sympathetic mammography. The asymmetry persists in the upper outer quadrant but becomes less masslike and less distorted. Susp ect normal fibroglandular tissue. Ultrasound will be performed to confirm there is no underlying mass . RIGHT BREAST ULTRASOUND 2-D and color Doppler imaging submitted. No abnormality is noted in the upper-outer quadrant of the RIGHT breast where there is dense fibrogla ndular tissue. MM/[place] [id number] IMPRESSION: BI-RADS: 2-Benign FOLLOW UP: 1 Year Follow-up Return to annual mammography.
== END 2022-07-06 09:31 | disposition home or self-care (01) ==
PROVIDERS: PCP Family Medicine; Visit Provider Internal Medicine Medical Oncology
DX: R92.8 Other abnormal and inconclusive findings on diagnostic imaging of breast (principal); N64.89 Other specified disorders of breast
CPT/HCPCS: 76642; 77061; G0279

== ENCOUNTER 2023-07-26 15:01 | Outpatient (CLI) | payer OTHER, SELFPAY ==
--- NOTE | 2023-07-26 15:05 | MM_ITS ---
WS: [id number] BILATERAL 3D TOMOSYNTHESIS DIGITAL DIAGNOSTIC MAMMOGRAPHY WITH CAD CLINICAL INFORMATION: ANNUAL - HX BR CA HISTORY: History of LEFT breast lumpectomy with radiation therapy COMPARISON: 2021, 2020, 2019 TECHNIQUE: Bilateral CC, MLO, and ML views. FINDINGS: Scattered fibroglandular densities bilaterally. Prior lumpectomy changes upper outer quadrant LEFT br east with associated parenchymal scarring. Treatment-related changes LEFT breast. Mild treatment-rela monty skin thickening LEFT breast continues to improve. A few incidental punctate calcifications. RIGHT breast is unremarkable and unchanged compared to previous. No suspicious focal mass, asymmetry, calcifications, or architectural distortion. No evidence of jeb gnancy. IMPRESSION: MM/[place] [id number] BI-RADS: 2-Benign FOLLOW UP: 1 Year Follow-up Recommend return to annual diagnostic mammography.
== END 2023-07-26 15:02 | disposition home or self-care (01) ==
LOC: RAD 15:01
PROVIDERS: PCP Family Medicine; Visit Provider Internal Medicine Medical Oncology
DX: Z85.3 Personal history of malignant neoplasm of breast (principal)
CPT/HCPCS: 77062; G0279